=== PATIENT | male | born 1970 ===

== ENCOUNTER → 2018-10-19 23:22 | Outpatient (REF) | payer OTHER, SELFPAY ==
[2018-10-20 03:50] LABS: Alanine Aminotransferase 64 IU/L (21-72); Albumin 4.3 g/dL (3.5-5.0); Albumin Globulin Ratio 1.8 (1.0-2.8); Alkaline Phosphatase 46 U/L (38-126); Aspartate Aminotransferase 63 IU/L (17-59); BUN Creatinine Ratio 19.3 (6-22); Bilirubin Total 0.6 mg/dL (0.2-1.3); Blood Urea Nitrogen 29 mg/dL (9-20); Calcium 9.5 mg/dL (8.4-10.2); Carbon Dioxide 31 mmol/L (22-32); Chloride 98 mmol/L (98-107); Cholesterol 140 mg/dL (140-199); Estimated Glomerular Filt Rate 49.5 mL/min (>60); Globulin 2.4 g/dL (1.7-4.1); Glucose 69 mg/dL (70-100); HDL Cholesterol 13 mg/dL (40-60); HEMOLYSIS < 15 (0-50); LDL Cholesterol Calculated 112 mg/dL (<100); Potassium 5.1 mmol/L (3.4-5.1); Sodium 138 mmol/L (137-145); Total Protein 6.7 g/dL (6.3-8.2); Triglycerides 76 mg/dL (35-150)
== END ==
LOC: LAB 23:22
PROVIDERS: Visit Provider Naturopath
DX: I10 Essential (primary) hypertension (principal)
CPT/HCPCS: 36415; 80053; 80061